=== PATIENT | female | born 1970 | race Caucasian/White ===

== ENCOUNTER 2019-04-06 20:56 | Emergency (ER) | payer OTHER ==
[2019-04-06 21:02] VITALS: BP 144/97; PULSE 89; TEMP 98.4; BMI 20.1
--- NOTE | 2019-04-07 02:34 | PDOC ---
Documentation entered by Raphael Holliday SCRIBE, acting as scribe for Laura Wood MD. Laura Wood MD: This documentation has been prepared by the Miya freeman Xhesika, SCRIBE, under my direction and personally reviewed by me in its entirety. I confirm that the documentation accurately reflects all work, treatment, procedures, and medical decision making performed by me. History of Present Illness - General Chief Complaint: Laceration Stated Complaint: LH 2ND FINGER LAC Time Seen by Provider: 04/06/19 21:17 History Source: Patient Exam Limitations: No Limitations - History of Present Illness Initial Comments: 04/06/19 22:17 The patient is a 49 year old female with a significant PMH of anemia who presents to the emergency department with a L hand 2nd finger laceration 2hrs prior to arrival. The patient states she was cutting food with a knife for her daughter's birthday green party and skimmed her L hand 2nd index finger. The patient notes she washed off the blood and wrapped her finger applying pressure to it. Patient denies any other injuries. Patient notes her last tetanus was 01/29. The patient denies chest pain, shortness of breath, headache and dizziness. Denies fever, chills, cough, nausea, vomiting, diarrhea and constipation. Denies dysuria, frequency, urgency and hematuria. Allergies: NKDA Past History - Past Medical History Allergies/Adverse Reactions: Allergies Allergy/AdvReac Type Severity Reaction Status Date / Time No Known Allergies Allergy Unverified 04/06/19 20:57 Home Medications: Ambulatory Orders Iron 04/06/19 Anemia: Yes COPD: No - Immunization History Immunization Up to Date: Yes - Suicide/Smoking/Psychosocial Hx Smoking History: Never smoked Review of Systems - Review of Systems Able to Perform ROS?: Yes Comments:: 04/06/19 22:19 GENERAL/CONSTITUTIONAL: No fever or chills. No weakness. HEAD, EYES, EARS, NOSE AND THROAT: No change in vision. No ear pain or discharge. No sore throat. CARDIOVASCULAR: No chest pain or shortness of breath. RESPIRATORY: No cough, wheezing, or hemoptysis. GASTROINTESTINAL: No nausea, vomiting, diarrhea or constipation. GENITOURINARY: No dysuria, frequency, or change in urination. MUSCULOSKELETAL: No joint or muscle swelling or pain. No neck or back pain. SKIN: (+) L hand 2nd finger laceration. NEUROLOGIC: No headache, vertigo, loss of consciousness, or change in strength/ sensation. ENDOCRINE: No increased thirst. No abnormal weight change. HEMATOLOGIC/LYMPHATIC: No anemia, easy bleeding, or history of blood clots. ALLERGIC/IMMUNOLOGIC: No hives or skin allergy. *Physical Exam - Vital Signs Last Vital Signs Temp Pulse Resp BP Pulse Ox 98.4 F 89 16 144/97 99 04/06/19 20:58 04/06/19 20:58 04/06/19 20:58 04/06/19 20:58 04/06/19 20:58 - Physical Exam Comments: 04/06/19 22:19 GENERAL: Awake, alert, and fully oriented, in no acute distress HEAD: No signs of trauma EYES: PERRLA, EOMI, sclera anicteric, conjunctiva clear ENT: Auricles normal inspection, hearing grossly normal, nares patent, oropharynx clear without exudates. Moist mucosa NECK: Normal ROM, supple, no lymphadenopathy, JVD, or masses EXTREMITIES: Normal range of motion, no edema. No clubbing or cyanosis. No cords, erythema, or tenderness NEUROLOGICAL: Cranial nerves II through XII grossly intact. Normal speech, normal gait SKIN: Warm, Dry, normal turgor. (+) 2cm by cm skin avulsion of medial portion of distal phalanx of L hand 2nd index finger. Procedures - Laceration/Wound Repair Left Distal 2nd digit Wound Length: 2.6 to 5.0 cm Progress: 3 cm oval full-thickness skin avulsion wound of the medial aspect left second finger, distal phalanx cleansed using sterile normal saline. Surgicel patch applied to the skin avulsion wound followed by similar sized patch of Xeroform. Sterile 2 x 2 gauze applied to wound and direct pressure applied for approximately 10 minutes. At this time, hemostasis appeared to be achieved and additional sterile gauze followed by tube dressing applied. Patient tolerated procedure well. Progress Note - Progress Note Progress Note: As noted above, this 49-year-old woman presents to ER with a skin avulsion wound of the left index finger sustained while cutting bread in her home prior to presentation. No history of easy bleeding/difficulty with wound healing. Patient is up-to-date on her tetanus immunization. Exam as noted above. As per procedure note, hemostasis of the wound achieved with Surgicel/Xeroform wound dressing followed by sterile gauze. Patient is been instructed to keep the original dressing in place as dry as possible for the next 48 hours. She should have wound check follow-up appointment sometime during that time(referral information for Dr. Abelardo Meyers , plastic surgery given to the patient. The patient had also follow-up with her PMD). If she cannot arrange follow-up within 48 hours, she should remove the original dressing herself in 2 days and apply gauze dressing to the area, keeping the Xeroform/Surgicel layer intact. After that, protective dressing would be needed with progressive trimming of the Xeroform/Surgicel as the wound heals. She return to the emergency room if she has been recurrent bleeding or has swelling/increased pain around the wound. *DC/Admit/Observation/Transfer Diagnosis at time of Disposition: Skin avulsion - Discharge Dispostion Disposition: HOME Condition at time of disposition: Stable - Referrals Referrals: Cruz Meyers MD [Staff Physician] - Call tomorrow - Patient Instructions Printed Discharge Instructions: DI for Avulsion Laceration (Not Requiring Sutures) Additional Instructions: keep original bandage intact, as dry as possible for 2 days keep left index finger elevated as much as possible for 1-[address] Meyers(plastic surgeon) office in AM to arrange followup within 2-3 days After 48 hours, if visit with plastic surgeon has not yet occurred, removal of original dressing and apply gauze to wound Return to ER if you have increased pain, swelling or persistent bleeding from wound - Post Discharge Activity
== END 2019-04-06 23:01 | disposition home or self-care (01) ==
LOC: FER 20:56
PROC: 0HQGXZZ Repair Left Hand Skin, External Approach (ICD-10-PCS; principal; 2019-04-06)
DX: S61.211A Laceration without foreign body of left index finger without damage to nail, initial encounter (principal); W26.0XXA Contact with knife, initial encounter; Y93.G1 Activity, food preparation and clean up; Y92.89 Other specified places as the place of occurrence of the external cause
CPT/HCPCS: 99281-25

== ENCOUNTER 2021-09-12 19:15 | Observation (INO) | payer OTHER ==
[2021-09-12] MEDS ORDERED: MECLIZINE HCL 25 MG TABLET (FP) PO ONE (20:21)
[2021-09-12] MEDS ORDERED: ONDANSETRON 4 MG TABLET PO ONE (20:21)
[2021-09-12] MEDS ORDERED: ONDANSETRON *ODT* 4 MG TABLET ONE (20:26)
[2021-09-12] MEDS ORDERED: MECLIZINE HCL 25 MG TABLET (FP) ONE (20:26)
[2021-09-12 21:48] LABS: BASO % 0.3 % (0-2.0); EOS % 0.1 % (0-4.5); HEMATOCRIT 41.5 % (32.4-45.2); HEMOGLOBIN 13.5 GM/dL (10.7-15.3); LYMPH % 9.4 % (8-40); MCH 28.1 pg (25.7-33.7); MCHC 32.7 g/dl (32.0-36.0); MEAN CELL VOLUME 85.9 fl (80-96); MEAN PLT VOLUME 9.6 fl (7.5-11.1); MONO % 4.6 % (3.8-10.2); NEUT % 85.6 % (42.8-82.8); PLATELET COUNT 218 10^3/uL (134-434); RBC 4.83 M/mm3 (3.60-5.2); RDW 13.4 % (11.6-15.6); WHITE BLOOD COUNT 12.1 K/mm3 (4.0-10.0)
[2021-09-12 21:54] LABS: INR 1.08 (0.83-1.09); PROTHROMBIN TIME (PATIENT) 12.4 SEC (9.7-13.0)
[2021-09-12 21:57] LABS: ACTIVATED PTT 25.8 SECONDS (25.2-36.5)
[2021-09-12 21:59] LABS: CHLORIDE 104 mmol/L (98-107); SODIUM 137 mmol/L (136-145)
[2021-09-12 22:01] LABS: ALBUMIN 4.2 g/dl (3.4-5.0); ANION GAP 10 MMOL/L (8-16); BLOOD UREA NITROGEN 16.2 mg/dL (7-18); CALCIUM 9.3 mg/dL (8.5-10.1); CO2 24 mmol/L (21-32); GLUCOSE,RANDOM 118 mg/dL (74-106)
[2021-09-12 22:04] LABS: CREATININE 0.6 mg/dL (0.55-1.3); SGOT/AST 24 U/L (15-37); SGPT/ALT 32 U/L (13-61)
[2021-09-12 22:06] LABS: TOT PROT 7.6 g/dl (6.4-8.2)
[2021-09-12 22:07] LABS: ALK PHOS 74 U/L (45-117)
[2021-09-12 22:10] LABS: BILIRUBIN,TOTAL 0.5 mg/dL (0.2-1)
[2021-09-12] MEDS ORDERED: METOCLOPRAMIDE HCL INJECTION 10 MG/2 ML VIAL IVPUSH ONE (22:25)
[2021-09-12] MEDS ORDERED: METOCLOPRAMIDE HCL INJECTION 10 MG/2 ML VIAL ONE (22:29)
[2021-09-13] MEDS ORDERED: METOCLOPRAMIDE HCL INJECTION 10 MG/2 ML VIAL IVPUSH PRN (00:56)
[2021-09-13] MEDS ORDERED: SODIUM CHLORIDE 1,000 ML IV SCH (01:00)
[2021-09-13 01:41] LABS: MCH 29.1 pg (25.7-33.7); MCHC 34.2 g/dl (32.0-36.0); MEAN CELL VOLUME 85.2 fl (80-96); MEAN PLT VOLUME 8.9 fl (7.5-11.1); PLATELET COUNT 209 10^3/uL (134-434); RBC 4.46 M/mm3 (3.60-5.2); WHITE BLOOD COUNT 10.5 K/mm3 (4.0-10.0)
[2021-09-13 01:45] LABS: EPI CELLS 26 /uL (0-25.1); HYALINE CASTS 4 /uL (0-3.1); PH,URINE 5.5 (5.0-8.0); URINE APPEARANCE CLEAR; URINE BACTERIA 1099 /uL (0-1359); URINE BILIRUBIN NEGATIVE (NEGATIVE); URINE COLOR YELLOW; URINE GLUCOSE (UA) NEGATIVE (NEGATIVE); URINE KETONE 1+ (NEGATIVE); URINE LEUK ESTERASE NEGATIVE (NEGATIVE); URINE NITRITE NEGATIVE (NEGATIVE); URINE PROTEIN 1+ (NEGATIVE); URINE RBC 11 /uL (0-23.9); URINE WBC 15 /uL (0-25.8)
[2021-09-13] MEDS ORDERED: CEFTRIAXONE 1,000 MG in DEXTROSE 5%-WATER - 50 ML IVPB ONE (03:23)
[2021-09-13] MEDS ORDERED: CEFTRIAXONE 1 GM/50 ML BAG ONE (03:31)
[2021-09-13] MEDS ORDERED: MECLIZINE HCL 25 MG TABLET (FP) PO SCH (06:00)
[2021-09-13 07:01] VITALS: TEMP 98.1; BMI 22.4
[2021-09-13 08:53] LABS: HEMATOCRIT 37.7 % (32.4-45.2); HEMOGLOBIN 12.3 GM/dL (10.7-15.3); MCH 28.3 pg (25.7-33.7); MCHC 32.7 g/dl (32.0-36.0); MEAN CELL VOLUME 86.6 fl (80-96); MEAN PLT VOLUME 9.4 fl (7.5-11.1); PLATELET COUNT 214 10^3/uL (134-434); RBC 4.36 M/mm3 (3.60-5.2); WHITE BLOOD COUNT 7.4 K/mm3 (4.0-10.0)
[2021-09-13 09:09] LABS: BLOOD UREA NITROGEN 12.6 mg/dL (7-18); CALCIUM 8.6 mg/dL (8.5-10.1); MAGNESIUM 2.5 mg/dL (1.8-2.4)
[2021-09-13 09:10] LABS: ALBUMIN 3.6 g/dl (3.4-5.0)
[2021-09-13 09:12] LABS: PHOSPHOROUS 3.2 mg/dL (2.5-4.9)
[2021-09-13 09:13] LABS: BILIRUBIN,TOTAL 0.6 mg/dL (0.2-1); CREATININE 0.6 mg/dL (0.55-1.3); TOT PROT 6.7 g/dl (6.4-8.2)
[2021-09-13 09:41] VITALS: BP 119/60; PULSE 70
[2021-09-13] MEDS ORDERED: ENOXAPARIN NA (PORCINE) 40 MG/0.4 ML DISP.SYRIN SQ SCH (10:00)
== END 2021-09-13 10:55 | disposition home or self-care (01) ==
LOC: JER 19:15 → INTOOBSV 22:53 → JERBED 22:53 → UNDOADMOB 22:53 → JERBED 09-13 00:13 → INTOOBSV 09-13 00:30 → OBSVTOIN 09-13 00:30 → J8W 09-13 04:53 → JERBED 09-13 04:53 → J8W 09-13 04:53
PROVIDERS: ADMIT Internal Medicine
PROC: 3E03329 Introduction of Other Anti-infective into Peripheral Vein, Percutaneous Approach (ICD-10-PCS; principal; 2021-09-13)
PROC: 3E02329 Introduction of Other Anti-infective into Muscle, Percutaneous Approach (ICD-10-PCS; 2021-09-13)
PROC: 3E023GC Introduction of Other Therapeutic Substance into Muscle, Percutaneous Approach (ICD-10-PCS; 2021-09-13)
PROC: 3E033GC Introduction of Other Therapeutic Substance into Peripheral Vein, Percutaneous Approach (ICD-10-PCS; 2021-09-13)
DX: D50.0 Iron deficiency anemia secondary to blood loss (chronic) (principal); R53.1 Weakness; R42 Dizziness and giddiness; Z86.16 Personal history of COVID-19; Z29.9 Encounter for prophylactic measures, unspecified; H93.19 Tinnitus, unspecified ear; R20.2 Paresthesia of skin; R20.0 Anesthesia of skin
CPT/HCPCS: 36415; 70551-TC; 71046-TC-FY; 80053; 81003; 82550; 82962; 83735; 84100; 84484; 84703; 85025; 85027; 85610; 85730; 93005; 93010; 96365; 96367; 96372; 96375; 99283-25; C9803; G0378; U0003; U0005